=== PATIENT | female | born 1935 | race Caucasian/White ===

== ENCOUNTER → 2016-03-31 | Outpatient (CLI) | payer OTHER ==
[~2016-03-31] MED LIST: ALENDRONATE PO; AMLO-110 PO; AMLO2.5T PO; ATOR10TA88 PO; CALC-354 PO; CALCTAB73 PO; CHOL1000 PO; FSMD/70 PO; GLC/500 PO; MECLIZINE PO; MELO15TA4 PO; METFORMIN PO; MULT-513 PO; OMEG10007 PO; PRLSR20 PO; SIMVASTATIN PO; TAMO20TA47 PO; VITAMIN D2 PO; VITAMIN D3 PO
--- NOTE | 2016-03-31 10:48 | DIAGNOSTIC IMAGING REPORT ---
ARTERIAL DOPPLER ULTRASOUND LOWER EXTREMITIES BILATERAL CLINICAL HISTORY: PAIN IN BOTH FEET COMPARISON STUDY: No previous studies for comparison. FINDINGS: Brachial arm systolic pressures are 133 mmHg on the right and 154 mm of mercury on the left. Dorsalis pedis systolic pressures were 159 mmHg on the right and 154 mmHg on the left. Dorsalis pedis systolic pressures are 154 mmHg on the right and 189 mmHg on the left. These measurements indicate normal ankle arm indices of 1 on the right and 1.2 in the left On the right there is triphasic flow within the common femoral artery, and biphasic flow within the superficial femoral artery popliteal artery, anterior tibial artery, posterior tibial artery, and peroneal artery. On the left there is triphasic flow within the common femoral artery, and biphasic flow within the superficial femoral artery, popliteal artery, anterior tibial artery, posterior tibial artery, and peroneal artery. No high velocity jets were visualized. IMPRESSION: No evidence of lower extremity arterial stenosis. Electronically signed by: Lj Banks M.D. 03/31/2016 10:46 AM Dictated Date/Time: 03/31/2016 10:43 AM
== END | disposition home or self-care (01) ==
LOC: C.ULTR 09:27
PROVIDERS: ATTEND Podiatrist
DX: M79.672 Pain in left foot (principal); M79.671 Pain in right foot

== ENCOUNTER → 2016-04-28 | Outpatient (CLI) | payer OTHER ==
[2016-04-28 12:45] LABS: ALT/SGPT 18 U/L (12-78); BLOOD UREA NITROGEN 10 mg/dl (7-18); BUN/CREATININE RATIO 12.2 (10-20); CALCIUM 8.8 mg/dl (8.5-10.1); CARBON DIOXIDE 25 mmol/L (21-32); CHLORIDE 106 mmol/L (98-107); CHOLESTEROL 143 mg/dl (0-200); CREATININE 0.82 mg/dl (0.60-1.20); GLUCOSE 100 mg/dl (70-99); POTASSIUM 3.7 mmol/L (3.5-5.1); SODIUM 143 mmol/L (136-145)
[2016-04-28 12:47] LABS: ESTIMATED AVERAGE GLUCOSE 126 mg/dl; HA1C FLAG Normal (Normal)
[2016-04-28 12:55] LABS: ALB/GLOB RATIO 0.8 (0.9-2); ALKALINE PHOSPHATASE 57 U/L (45-117); AST/SGOT 18 U/L (15-37); CHOLESTEROL/HDL RATIO 2.3; HDL CHOLESTEROL 63 mg/dl; LDL CHOLESTEROL CALCULATED 55 mg/dl; TRIGLYCERIDES 123 mg/dl (0-150); VERY LOW DENSITY LIPOPROT CALC 25 mg/dl
--- NOTE | 2016-05-27 06:23 | CODING QUERY MEDICAL NECESSITY ---
CQSUPPORTING DIAGNOSIS NEEDED A supporting diagnosis is required for the test/procedure performed on this patient in order for us to be reimbursed by the patient's insurance. Please provide a supporting diagnosis for the following test/procedure listed below next to the test name along with your signature. *If there is no additional diagnosis for this patient that would support the following test/procedure please document that below next to the test/procedure. Test(s)/Procedure(s) that require a supporting diagnosis: DOS 04/28/16 GLYCATED HEMOGLOBIN Provider Signature: Date: Thank you Precious Castle [employer] Information Management Once completed, please kindly fax back to [phone] For questions please call [phone]
== END | disposition home or self-care (01) ==
LOC: C.LABBFT 08:50
PROVIDERS: ATTEND Nurse Practitioner
DX: E78.00 Pure hypercholesterolemia, unspecified (principal); E07.9 Disorder of thyroid, unspecified; R73.03 Prediabetes; R73.09 Other abnormal glucose

== ENCOUNTER → 2016-06-06 | Day surgery (SDC) | payer OTHER ==
[2016-05-23 08:38] VITALS: Ht 165.1 cm; Wt 68.6 kg
--- NOTE | 2016-05-28 11:21 | DIAGNOSTIC IMAGING REPORT ---
CHEST 2 VIEWS ROUTINE CLINICAL HISTORY: Preoperative chest COMPARISON STUDY: No previous studies for comparison. FINDINGS: The heart is normal in size. There is aortic tortuosity. There is no failure. There is no focal pulmonary consolidation. There are surgical clips at the right lung base likely related to the right breast. There is a retrocardiac opacity consistent with a hiatal hernia.[ A density in the right perihilar region is felt to reflect a summation. There is minor basilar atelectasis/scarring. IMPRESSION: No active disease in the chest. Electronically signed by: Lj Banks M.D. 05/28/2016 11:20 AM Dictated Date/Time: 05/28/2016 11:18 AM
[2016-05-28 12:14] LABS: HEMATOCRIT 41.6 % (37-47); MEAN CELL VOLUME 87.9 fL (80-100); MEAN CORPUSCULAR HEMOGLOBIN 29.2 pg (25-34); MEAN CORPUSCULAR HGB CONC 33.2 g/dl (32-36); MEAN PLATELET VOLUME 10.9 fL (7.4-10.4); PLATELET COUNT 225 K/uL (130-400); RED BLOOD COUNT 4.73 M/uL (4.2-5.4); WHITE BLOOD COUNT 7.19 K/uL (4.8-10.8)
[2016-05-28 12:32] LABS: PARTIAL THROMBOPLASTIN RATIO 0.9; PROTHROMBIN TIME (PATIENT) 10.3 SECONDS (9.0-12.0)
[~2016-06-06] VITALS: Ht 165.1 cm; Wt 68.6 kg
[~2016-06-06] MED LIST changes: -ALENDRONATE PO; -AMLO-110 PO; +ATROPINE SULFATE 0.1 MG/ML 5ML SYR IV PRN; +BUPIVACAINE 0.5 % 5 MG/1 ML MPF 30ML VIAL ONE; -CALCTAB73 PO; +CEFAZOLIN 1000MG/55 ML D5W IV SCH; +EpHEDrine SULFATE INJ 50 MG/ML AMP IV PRN; +FENTANYL CITRATE INJ 50 MCG/1 ML 2 ML VIAL IV PRN; +FENTANYL CITRATE INJ 50 MCG/1 ML 2 ML VIAL ONE; +FLUMAZENIL 0.1 MG/1 ML 10 ML VIAL IV PRN; +HYDROCODONE/ACETAMOPHEN 5/325MG TAB PO PRN; +LABETALOL HCL IV 5 MG/ML 20ML IV PRN; +LACTATED RINGER'S 1000ML 1,000 ML IV SCH; +LIDOCAINE HCL 1% 20 ML VIAL ONE; +LIDOCAINE HCL 2% 2 ML VIAL (20MG/ML) ONE; -MECLIZINE PO; -METFORMIN PO; +METOCLOPRAMIDE HCL INJ 5 MG/ML 2 ML VIAL IV PRN; +MIDAZOLAM HCL 1 MG/ML 2ML VIAL ONE; -MULT-513 PO; +NALOXONE HCL 0.4 MG/1 ML VIAL/CARP IV PRN; +ONDANSETRON INJ 2 MG/ML 2 ML VIAL IV PRN; +ONDANSETRON INJ 2 MG/ML 2 ML VIAL ONE; +OXYCODONE/ACETAMINOPHEN 5-325 TAB PO PRN; +PROMETHAZINE HCL INJ 12.5 MG in SODIUM CHLORIDE 0.9% 50ML 50 ML IV PRN; +PROPOFOL IV EMULSION 10 MG/ML 20 ML VIAL IV ONE; -SIMVASTATIN PO; +SODIUM CHLORIDE 0.9% 1000ML 1,000 ML IV SCH; -VITAMIN D2 PO; -VITAMIN D3 PO
--- NOTE | 2016-06-06 09:41 | History & Physical Bridge - SC ---
H&P Re-Evaluation Bridge Note: I have examined the patient, reviewed the History & Physical and in the interval since the performance of the History & Physical I have noted the following changes of clinical significance: No changes noted
--- NOTE | 2016-06-06 10:42 | Discharge Instructions-SurgCtr ---
Discharge Instructions Date of Service Jun 06, 2016. Visit Reason for Visit: Right Hallux Valgus, Pain, D.m. Discharge Discharge Diagnosis / Problem: right foot hallux abductovalgus deformity; arthritis Discharge Goals Goal(s): Decrease discomfort, Improve function Activity Recommendations Activity Limitations: as noted below (non weightbearing right foot) Lifting Limitations: no more than 5 pounds Exercise/Sports Limitations: none Shower/Bathe: keep incision dry Driving or Machine Use: no driving until instructed Weightbearing Status: Right non-weightbearing Anesthesia . Post Anesthesia Instructions: If you have had General Anesthesia or IV Sedation: * Do not drive today. * Resume driving when surgeon permits. * Do not make important decisions or sign legal documents today. * Call surgeon for: 1. Temperature elevations greater than 101 degrees F. 2. Uncontrollable pain. 3. Excessive bleeding. 4. Persistent nausea and vomiting. 5. Medication intolerance (nausea, vomiting or rash). * For nausea and vomiting use only clear liquids such as: tea, soda, bouillon until nausea subsides, then gradually increase diet as tolerated. * If you have any concerns or questions, call your surgeon's office. If physician is unavailable and it is an emergency, call 911 or go to the nearest emergency room. . Diet Recommendations Home Diet: no limitations Fluid Restriction: None Procedures Procedures Performed: Right Foot Surgical Correction Bunion Deformity Pending Studies Studies pending at discharge: no Medical Emergencies . Who to Call and When: Medical Emergencies: If at any time you feel your situation is an emergency, please call 911 immediately. . Non-Emergent Contact Non-Emergency issues call your: Primary Care Provider Call Non-Emergent contact if: temperature is above 101.5 . . "Provider Documentation" section prepared by Holly Jj. PA Drug Monitoring Program Search Results: no issues identified
--- NOTE | 2016-06-06 10:48 | [facility] Post Operative Brief Note ---
Immediate Operative Summary Operative Date Jun 06, 2016. Pre-Operative Diagnosis Right Hallux Valgus, Pain Post-Operative Diagnosis Same Procedure(s) Performed Right Foot Surgical Correction Bunion Deformity Surgeon Dr Abraham Carpet Installer Helper Surgeon(s) None Estimated Blood Loss 0ml Findings bone right foot Specimens A: Bone Right Foot Drains none Anesthesia mac with local Complication(s) None Disposition Recovery Room / PACU
[2016-06-06 10:50] VITALS: TEMP 36.6
--- NOTE | 2016-06-06 11:05 | Anesthesia Progress Nt - [facility] ---
Anesthesia Post Op Note Date & Time Jun 06, 2016 at 11:04 Vital Signs Pain Intensity: 0 Vital Signs Past 12 Hours Date Time Temp Pulse Resp B/P Pulse Ox O2 Delivery O2 Flow Rate FiO2 06/06/16 07:18 36.7 79 16 155/106 95 Room Air Notes Mental Status: alert / awake / arousable, participated in evaluation Pt Amnestic to Procedure: Yes Nausea / Vomiting: adequately controlled Pain: adequately controlled Airway Patency, RR, SpO2: stable & adequate BP & HR: stable & adequate Hydration State: stable & adequate Anesthetic Complications: no major complications apparent
[2016-06-06 11:24] VITALS: BP 159/82; PULSE 69; O2SAT 97
--- NOTE | 2016-06-06 11:24 | DIAGNOSTIC IMAGING REPORT ---
INTRAOPERATIVE FLUOROSCOPIC IMAGES OF THE RIGHT FOOT CLINICAL HISTORY: RIGHT FOOT SURGICAL CORRECTION OF BUNION COMPARISON STUDY: Right foot radiograph February 28, 2016. FLUOROSCOPY TIME: 2 seconds. FINDINGS: 2 fluoroscopic images were obtained. There are expected findings following distal right first metatarsal osteotomy with wire fixation of the first digit. Alignment is anatomic. Hardware is intact. There is no fracture or unexpected radiopaque foreign body. IMPRESSION: Expected postsurgical findings within the right first digit, as described above. Electronically signed by: Chun Florentino M.D. 06/06/2016 11:22 AM Dictated Date/Time: 06/06/2016 11:08 AM
--- NOTE | 2016-06-06 11:59 | OPERATIVE REPORT ---
DATE OF OPERATION: 06/06/2016 PREOPERATIVE DIAGNOSIS: Painful right foot bunion deformity. POSTOPERATIVE DIAGNOSIS: Same. PROCEDURE: Right bunion correction or Mendez bunionectomy with percutaneous 0.062 K-wire fixation. SURGEON: Holly Abraham DPM. HEMOSTASIS: Pneumatic ankle tourniquet at 250 mmHg. BLOOD LOSS: About 1 mL. ANESTHESIA: Local IV sedation. OPERATION AND FINDINGS: PROCEDURE FOLLOWS: The patient was brought the operating room and placed in the supine position. The right lower extremity was prepped and draped in the usual sterile manner. A 1:1 mixture of 1% lidocaine plain and 0.5% Marcaine was utilized to anesthetize the right foot in the area of the first metatarsophalangeal joint. At this point, a timeout was taken, anesthesia was induced and the procedure began. A dorsal linear incision was made just medial to the long extensor tendon. Care was taken to dissect down to subcutaneous tissues which were then translated medially and laterally. Next, the capsular tissues were dissected in line with the original incision and dissected medially and laterally to expose the joint. At this time the first metatarsal head was found to be extremely arthritic with a rather large medial exostosis. This was excised utilizing the sagittal saw and passed off the table and sent to pathology for permanent specimen. A lateral release was completed. At this point, the long extensor tendon was checked and found to be of appropriate length. The short extensor tendon was resected during the lateral release. The area was then flushed. At this point the base of the proximal phalanx, which is the Mendez procedure, was excised utilizing a sagittal saw. The underlying flexor tendon was found to be intact. The toe was then taken through a range of motion. It was sitting in an improved position. The K-wire serves as just percutaneous temporary fixation. It was driven first distally out across the proximal and distal phalanges and then proximally across the first metatarsal, reducing the IM angle and bringing the IM angle much down and hallux abductus angle improved. Again this will remain in for about 4 weeks postop. The patient did have a rather osteoporotic bone and this was noted when applying the K-wire across the proximal and distal phalanges and again another reason as to why this procedure was chosen for the patient given her age and osteoporosis in her bones that was present, otherwise she is a very healthy patient. The K-wire remained in place, it was cut to size and protective Parminder ball was placed. Again, intraop fluoroscopy photos t showed appropriate position and location of the K-wire and the fixation. Next, the capsular tissues, there was a lot of redundant capsule present and these were excised. A medial capsulorrhaphy was performed. The capsular tissues were closed with 3-0 Vicryl, subcutaneous tissues were closed with 3-0 Vicryl and the skin was closed with 3-0 nylon in horizontal mattress sutures. Again the long extensor tendon was not lengthened in this particular situation. It did appear to have the toe held. It did not appear tight in any way. The toe had improved range of motion and was sitting in a much improved position and that is the reason behind why the extensor tendon did not need to be lengthened with that it was not tight post-removal of the bunion and the base of proximal phalanx. Again compressive and corrective dressings were applied. The patient has good hemodynamic response noted to the right digit and the right lower extremity. She was taken to recovery room with all vital signs stable and intact. She will follow up with me in the office in 1 week. She was made aware of all risks and benefits and signed consent for the procedure. She did try to wear wider shoe gear. She did try many conservative treatments with some of the pads and bunion sleeves that we offered her and they just were not improving her pain. She had extreme inability to wear a lot of shoe gear without tenderness and that is why the family and her opted for surgical correction. I did have her thoroughly checked with her primary care doctor prior to the procedure. She also had ABIs performed which were sufficient and stable and her circulation is good and again that is why we proceeded with this elective bunion procedure. Additionally, the mendez bunionectomy was chosen as the procedure of choice despite the large IM angle that was present given the patient's age, and likely osteoporosis present. This was explained in great detail with the family pre operatively that this procedure would be the least invasive, and least complex to minimize post op complications and the ability to bear weight on the foot early in the post op period. I attest to the content of the Intraoperative Record and any orders documented therein. Any exceptions are noted below. ARMEN
== END | disposition home or self-care (01) ==
LOC: X.SURG 07:02
PROVIDERS: ATTEND Podiatrist
DX: M21.611 Bunion of right foot (principal); M20.11 Hallux valgus (acquired), right foot; E11.51 Type 2 diabetes mellitus with diabetic peripheral angiopathy without gangrene; E78.00 Pure hypercholesterolemia, unspecified; I10 Essential (primary) hypertension; E55.9 Vitamin D deficiency, unspecified; K21.9 Gastro-esophageal reflux disease without esophagitis; M81.0 Age-related osteoporosis without current pathological fracture; E66.3 Overweight; Z68.25 Body mass index [BMI] 25.0-25.9, adult; Z85.3 Personal history of malignant neoplasm of breast

== ENCOUNTER → 2016-07-25 | Outpatient (CLI) | payer OTHER ==
[~2016-07-25] MED LIST changes: +ATOR10TA82 PO; -ATOR10TA88 PO; -ATROPINE SULFATE 0.1 MG/ML 5ML SYR IV PRN; -BUPIVACAINE 0.5 % 5 MG/1 ML MPF 30ML VIAL ONE; -CEFAZOLIN 1000MG/55 ML D5W IV SCH; -EpHEDrine SULFATE INJ 50 MG/ML AMP IV PRN; -FENTANYL CITRATE INJ 50 MCG/1 ML 2 ML VIAL IV PRN; -FENTANYL CITRATE INJ 50 MCG/1 ML 2 ML VIAL ONE; -FLUMAZENIL 0.1 MG/1 ML 10 ML VIAL IV PRN; -HYDROCODONE/ACETAMOPHEN 5/325MG TAB PO PRN; -LABETALOL HCL IV 5 MG/ML 20ML IV PRN; -LACTATED RINGER'S 1000ML 1,000 ML IV SCH; -LIDOCAINE HCL 1% 20 ML VIAL ONE; -LIDOCAINE HCL 2% 2 ML VIAL (20MG/ML) ONE; -METOCLOPRAMIDE HCL INJ 5 MG/ML 2 ML VIAL IV PRN; -MIDAZOLAM HCL 1 MG/ML 2ML VIAL ONE; -NALOXONE HCL 0.4 MG/1 ML VIAL/CARP IV PRN; -ONDANSETRON INJ 2 MG/ML 2 ML VIAL IV PRN; -ONDANSETRON INJ 2 MG/ML 2 ML VIAL ONE; -OXYCODONE/ACETAMINOPHEN 5-325 TAB PO PRN; -PROMETHAZINE HCL INJ 12.5 MG in SODIUM CHLORIDE 0.9% 50ML 50 ML IV PRN; -PROPOFOL IV EMULSION 10 MG/ML 20 ML VIAL IV ONE; -SODIUM CHLORIDE 0.9% 1000ML 1,000 ML IV SCH; -TAMO20TA47 PO; +TAMO20TA9 PO
[2016-07-25 12:31] LABS: BASO % 0.6 %; BASO ABS # 0.04 K/uL (0-0.2); COMPLETE YES; EOS % 2.3 %; HEMATOCRIT 43.2 % (37-47); IG% 0.2 %; LYMPH % 40.5 %; LYMPH ABS # 2.68 K/uL (1.2-3.4); MEAN CELL VOLUME 89.1 fL (80-100); MEAN CORPUSCULAR HEMOGLOBIN 29.5 pg (25-34); MEAN CORPUSCULAR HGB CONC 33.1 g/dl (32-36); MEAN PLATELET VOLUME 11.3 fL (7.4-10.4); MONO % 8.6 %; NEUT % 47.8 %; PLATELET COUNT 243 K/uL (130-400); RED BLOOD COUNT 4.85 M/uL (4.2-5.4); WHITE BLOOD COUNT 6.61 K/uL (4.8-10.8)
[2016-07-25 12:48] LABS: ALT/SGPT 24 U/L (12-78); BLOOD UREA NITROGEN 13 mg/dl (7-18); BUN/CREATININE RATIO 15.2 (10-20); CARBON DIOXIDE 28 mmol/L (21-32); CHLORIDE 106 mmol/L (98-107); CREATININE 0.86 mg/dl (0.60-1.20); GLUCOSE 104 mg/dl (70-99); POTASSIUM 3.8 mmol/L (3.5-5.1); SODIUM 143 mmol/L (136-145)
[2016-07-25 12:49] LABS: ALB/GLOB RATIO 0.9 (0.9-2); ALKALINE PHOSPHATASE 62 U/L (45-117); AST/SGOT 22 U/L (15-37)
[2016-07-25 12:54] LABS: CALCIUM 9.7 mg/dl (8.5-10.1)
--- NOTE | 2016-07-26 06:45 | CODING QUERY NO DIAGNOSIS ---
TREATMENT RENDERED WITHOUT A DIAGNOSIS To promote full compliance with coding requirements relating to patient care, physician participation is requested in all cases of supervisor winding department uncertainty. Please assist us with providing a diagnosis/symptom for the test(s) below: A diagnosis/symptom was not documented on your Order. A valid diagnosis/symptom is required to bill all insurances. Please remember that we are unable to code a diagnosis of rule out, probable, possible, questionable, or suspected. Tests that require a diagnosis: DOS 07/25 * CBC, CMP. [facility] DIAGNOSIS: Provider Signature: Date: Thank you Sheri Maciel [employer] Information Management Once completed, please kindly fax back to [phone] For questions please call [phone]
== END | disposition home or self-care (01) ==
LOC: C.LABBFT 08:33
PROVIDERS: ATTEND Nurse Practitioner Family
DX: D05.11 Intraductal carcinoma in situ of right breast (principal)

== ENCOUNTER → 2016-10-07 | Outpatient (CLI) | payer OTHER ==
[~2016-10-07] MED LIST changes: -ATOR10TA82 PO; +ATOR10TA88 PO; +TAMO20TA47 PO; -TAMO20TA9 PO
== END | disposition home or self-care (01) ==
LOC: C.MAMM 10:44
PROVIDERS: ATTEND Nurse Practitioner
DX: M81.0 Age-related osteoporosis without current pathological fracture (principal)

== ENCOUNTER → 2016-10-30 | Outpatient (CLI) | payer OTHER ==
[2016-10-30 12:41] LABS: ESTIMATED AVERAGE GLUCOSE 123 mg/dl; HA1C FLAG Normal (Normal)
[2016-10-30 13:05] LABS: BLOOD UREA NITROGEN 13 mg/dl (7-18); BUN/CREATININE RATIO 14.2 (10-20); CALCIUM 9.2 mg/dl (8.5-10.1); CARBON DIOXIDE 29 mmol/L (21-32); CHLORIDE 109 mmol/L (98-107); CREATININE 0.95 mg/dl (0.60-1.20); GLUCOSE 99 mg/dl (70-99); SODIUM 143 mmol/L (136-145)
[2016-10-30 13:08] LABS: ALB/GLOB RATIO 0.9 (0.9-2); ALKALINE PHOSPHATASE 69 U/L (45-117); ALT/SGPT 25 U/L (12-78); AST/SGOT 31 U/L (15-37); CHOLESTEROL 148 mg/dl (0-200); CHOLESTEROL/HDL RATIO 2.6; HDL CHOLESTEROL 58 mg/dl; LDL CHOLESTEROL CALCULATED 58 mg/dl; TRIGLYCERIDES 160 mg/dl (0-150); VERY LOW DENSITY LIPOPROT CALC 32 mg/dl
--- NOTE | 2016-11-05 06:17 | CODING QUERY MEDICAL NECESSITY ---
CQSUPPORTING DIAGNOSIS NEEDED A supporting diagnosis is required for the test/procedure performed on this patient in order for us to be reimbursed by the patient's insurance. Please provide a supporting diagnosis for the following test/procedure listed below next to the test name along with your signature. *If there is no additional diagnosis for this patient that would support the following test/procedure please document that below next to the test/procedure. Test(s)/Procedure(s) that require a supporting diagnosis: DOS 10/30/16 VITAMIN D TEST Provider Signature: Date: Thank you Precious Castle [employer] Information Management Once completed, please kindly fax back to [phone] For questions please call [phone]
== END | disposition home or self-care (01) ==
LOC: C.LABBFT 08:52
PROVIDERS: ATTEND Nurse Practitioner
DX: E78.00 Pure hypercholesterolemia, unspecified (principal); R73.03 Prediabetes; M85.80 Other specified disorders of bone density and structure, unspecified site

== ENCOUNTER → 2017-01-12 | Outpatient (CLI) | payer OTHER ==
--- NOTE | 2017-01-12 15:36 | MAMMOGRAPHY REPORT ---
BILATERAL DIGITAL SCREENING MAMMOGRAM WITH CAD: 01/12/2017 CLINICAL HISTORY: Routine screening. Patient has no complaints. TECHNIQUE: Bilateral CC, MLO 2-D and tomosynthesis, repeat right CC and MLO and left XCCL 2-D views w ere obtained. Current study was also evaluated with a Computer Aided Detection (CAD) system. COMPARISON: Comparison is made to exams dated: 01/10/2016 mammogram, 01/08/2015 mammogram, 07/07/2014 mammogram, 01/06/2014 aspiration, 01/06/2014 mammogram, and 12/19/2013 ultrasound - [facility]. BREAST COMPOSITION: There are scattered areas of fibroglandular density in both breasts. FINDINGS: There are mild vascular calcifications in the breasts. Stable post surgical changes in th e lower inner quadrant of the right breast, with surgical clips remaining in place. No new suspicious mass, architectural distortion or cluster of microcalcifications is seen. IMPRESSION: ACR BI-RADS CATEGORY 2: BENIGN There is no mammographic evidence of malignancy. A 1 year screening mammogram is recommended. The pa tient will receive written notification of the results. Approximately 10% of breast cancers are not detected with mammography. A negative mammographic report should not delay biopsy if a clinically suggestive mass is present. Judy Zurita M.D. ay/:01/12/2017 14:01:48 Leather Fitter: Victorina BECKMAN(R)(M), [facility] letter sent: Normal 1/2 BI-RADS Code: ACR BI-RADS Category 2: Benign
== END | disposition home or self-care (01) ==
LOC: C.MAMM 09:18
PROVIDERS: ATTEND Nurse Practitioner
DX: Z12.31 Encounter for screening mammogram for malignant neoplasm of breast (principal)